=== PATIENT | female | born 1940 | race Caucasian/White ===

== ENCOUNTER 2016-10-26 09:24 | Inpatient (IN) | payer MEDICARE, BC ==
--- NOTE | ~2016-10-26 | CT71 ---
[facility] A Service of [facility] RADIOLOGY TEXT RESULTS PATIENT: ELVIN ORO LOCATION: [facility] : 40 UNIT #: [id number] AGE: [address]: Irma Loya MD SEX: F ORDER DR: [id number] [facility] [address] [facility]. [place], [place] [address] [id number] E MR#: [id number] Acc #: [id number] NAME: ELVIN ORO : 1940 SEX: F STUDY DATE/TIME: 10/26/2016 11:28 UNIT: [facility] ROOM: STUDY DESCRIPTION: CT Head Wo Contrast Attending Physician: Reba Sanders M.D. Ordering Physician: Reba Sanders M.D. Primary Care Physician: Soco Barker M.D. MEDICAL IMAGING REPORT This report is preliminary unless electronic signature is present EXAM CT head without contrast dated 10/26/2016. COMPARISON CT head without contrast dated 07/26/2012. HISTORY Patient fell this a.m. Dizziness for [address] of the head was obtained without contrast in the axial plane as per the protocol. This CT exam was performed with one or more of the following radiation dose reduction techniques: automatic exposure control, adjustment of mA and/or kV according to patient size, and iterative reconstruction. FINDINGS Ventricular size and configuration are normal. There is no evidence of acute infarct or hemorrhage. There are no extraaxial fluid collections. No mass lesion or mass effect is seen. There are no skull fractures. S-shaped nasal septal deviation is seen with mild nodular mucosal thickening in the posterior right ethmoid sinus. Larger right jose bullosa is seen. IMPRESSION Normal noncontrast head CT. Dictated by... Osiel Goins M.D. [facility] RADIOLOGY TEXT RESULTS PATIENT: ELVIN ORO LOCATION: [facility] 470- : 40 UNIT #: [id number] AGE: [address]: Irma Loya MD SEX: F ORDER DR: THIS IS AN ELECTRONICALLY VERIFIED REPORT Osiel Goins M.D. at 10/27/2016 2:14 PM CPR/tmw TD: 10/26/2016 13:29 JOB #: [id number] MEDICAL IMAGING REPORT Page 1 of 1 COPY
--- NOTE | ~2016-10-26 | CO ---
Unit #: [id number] #: [id number] Patient: ELVIN ORO [id number] [address] [address] [id number] I MR#: [id number] NAME: ELVIN ORO ROOM: 470 Age: 76 Sex: F Admission Date: 10/27/2016 : 1940 Attending Physician: Irma Loya M.D. Primary Care Physician: Soco Barker M.D. Consultation Date: 10/28/2016 CONSULTATION REPORT REASON FOR CONSULTATION Dysphagia to solids. HISTORY OF PRESENT ILLNESS Ms. Oro is a 76-year-old white female. She is quite frail. She presents with 4-5 week history of dysphagia to solids and history of intermittent bolus meat impaction. In fact, she had similar history a few years ago and had a history of dilation. In fact, she was admitted after having a fall at home. PAST MEDICAL HISTORY 1. History of osteoporosis. 2. Gastroesophageal reflux disease. 3. Hyperlipidemia. 4. Esophageal stricture, status post dilatation. 5. History of compression fractures. PAST SURGICAL HISTORY 1. Left knee surgery. 2. Esophageal dilation. SOCIAL HISTORY The patient lives with a friend. No smoking. Does not drink alcohol. Walks with minimal assistance. FAMILY HISTORY Significant for diabetes. No family history of colon, pancreatic cancer or varices. ALLERGIES No known drug allergies. HOME MEDICATIONS 1. Antireflux medication. 2. Anticholesterol medication. REVIEW OF SYSTEMS Detailed review of organ systems does not reveal any recent weight loss. No history of fever, chills or rigors, headache, seizures, chest pain or syncope. No history of cough, expectoration, hemoptysis. No history of dysuria, hematuria or pyuria. No history of focal seizures or extremity weakness. PHYSICAL EXAMINATION Unit #: [id number] #: [id number] Patient: ELVIN ORO GENERAL: She is alert and oriented and appears comfortable. Frail and thin. VITALS: Temperature 97.2, pulse 78 per minute, blood pressure 152/87. She weighs 154 pounds, close to her baseline weight. HEENT: No pallor, icterus, lymphadenopathy or peripheral edema. LUNGS: Normal breath sounds with good air entry. HEART: Normal heart sounds. No murmurs to auscultation. ABDOMEN: Soft and nontender. Liver and spleen are not palpable. Bowel sounds normal. DIAGNOSTIC STUDIES LABORATORY: Normal CBC, INR and chemistry. ASSESSMENT 1. Patient most likely has esophageal stricture that could be benign stricture or malignant stricture. The patient will have an upper endoscopy and possible dilation. This can be scheduled for tomorrow. 2. History of recent fall at home. 3. History of gastroesophageal reflux disease and hyperlipidemia. Thank you for the chance to see this pleasant patient. Dictated by... Jessica Cole TD: 10/30/2016 11:41 JOB #: [id number] CC: Jessica Koch M.D. Traci M. Edwards, M.D. CONSULTATION REPORT Page 1 of 1 X Andrew Causey MD X CONSULTATION REPORT
--- NOTE | ~2016-10-26 | CO ---
Unit #: [id number] #: [id number] Patient: ELVIN ORO [id number] [address] [place], [place] [address] [id number] I MR#: [id number] NAME: ELVIN ORO ROOM: [facility] Age: 76 Sex: F Admission Date: 10/26/2016 : 1940 Attending Physician: Irma Loya M.D. Primary Care Physician: Soco Barker M.D. Requesting Physician: Sarita Stephen M.D. Consultation Date: 10/27/2016 CONSULTATION REPORT ADMITTING PHYSICIAN Dr. Stephen. CONSULTING PHYSICIAN Dr. Terence Glynn/Dr. Joseph. REASON FOR ADMISSION Status post fall with left knee pain. HISTORY OF PRESENT ILLNESS The patient is a very pleasant, 76-year-old female who we were asked to see in consultation by Dr. Stephen for left knee pain and swelling. The patient reports she was in her usual state of health on Thursday morning until she got up, standing at the stove and her cat was behind her and she fell backwards. The patient caught herself on both hands. The patient reports she hit her left knee. The patient reports since she hit this knee, she has developed pain in her left knee. It is not localized. The patient admits she has a large effusion. The patient reports her pain is a 10 on a scale of 1 to 10. Her pain is definitely worse with ambulation. The patient denies any numbness, tingling, fever or chills. The patient arrived at the emergency department at [facility] for further evaluation and treatment. PAST MEDICAL HISTORY 1. Hospitalization March 07-2013, for a patella fracture. The patient underwent an ORIF with tension band wiring. 2. GERD. 3. Hyperlipidemia. 4. Esophageal stricture status post dilation. 5. Osteoporosis with history of compression fractures. PAST SURGICAL HISTORY 1. Esophageal dilation. 2. ORIF of left patella. SOCIAL HISTORY The patient lives with a friend. She does not use tobacco or alcohol. FAMILY HISTORY Notable mother dying of brain aneurysm. His dad at age 83. He had a pacemaker and was also a diabetic. ALLERGIES No known drug allergies. Unit #: [id number] #: [id number] Patient: ELVIN ORO HOME MEDICATIONS 1. Cholesterol medication. 2. Reflux medication. Medications will need to be verified. REVIEW OF SYSTEMS CONSTITUTIONAL: The patient denies any weight gain, weight loss. EYES: The patient denies double vision, blurred vision. LUNGS: The patient denies any shortness of air or chronic cough. CARDIOVASCULAR: The patient denies chest pain, irregular heartbeat. ABDOMEN: The patient denies any nausea, vomiting. MUSCULOSKELETAL: The patient admits to severe pain in her left knee. NEUROLOGIC: The patient is denying numbness or tingling. SKIN: The patient denied any rash or lesions. Twelve complete systems in total reviewed and negative other than above. PHYSICAL EXAMINATION GENERAL APPEARANCE: She is well developed, well nourished in no acute distress. She is alert and oriented x3. VITAL SIGNS: Temperature 98.2. Blood pressure 129/64. Heart rate 79 and regular. Respirations 16. HEENT: Normocephalic, atraumatic. PERRLA. Extraocular movements intact. Conjunctivae clear. NECK: Supple. No thyromegaly. LUNGS: Clear to auscultation. No accessory muscle use. Equal expansion bilaterally. CARDIOVASCULAR: S1, S2. ABDOMEN: Soft, nontender, nondistended. Positive bowel sounds. MUSCULOSKELTAL: Gait not appreciated. EXTREMITIES: Examination of the patient's left knee revealed she did have tenderness to palpation (1) left knee. She had a large effusion. She had decreased range of motion of her left knee. There were no other masses appreciated. Her mediolateral ligaments were stable without subluxation or laxity. Her quad tendon strength 4/5. No clubbing, cyanosis or edema other than noted above. SKIN: No rash or lesions other than noted above. NEUROLOGIC: The patient was able to move all four extremities but admittedly her left knee she did have some difficulties. DIAGNOSTIC STUDIES LABORATORY: Sodium 137, potassium 3.7, chloride 104, CO2 24, BUN 8, creatinine 0.7, glucose 107. WBC 7.8, hemoglobin 14.1. ASSESSMENT 1. Status post fall with left knee pain. 2. Intractable pain of her chest and left knee. CT of the chest is currently pending. 3. Reflux disease. 4. Hyperlipidemia. 5. Esophageal stricture. 6. History of compression fractures. PLAN I plan on aspirating and injecting the patient's left knee with cortisone after the aspiration. I did explain the risks and expected outcomes of Unit #: [id number] #: [id number] Patient: ELVIN ORO this type of procedure. The patient completely understands and wishes to proceed. I will go ahead and order the supplies and come back a little later and take care of this procedure. Dictated by... Wilder Sierra P.A.-C- for Terence Glynn M.D. HERMINIO/russ TD: 10/27/2016 09:02 JOB #: [id number] CONSULTATION REPORT Page 1 of 1 X X CONSULTATION REPORT
--- NOTE | ~2016-10-26 | CT57 ---
[facility] A Service of [facility] & [facility] RADIOLOGY TEXT RESULTS PATIENT: ELVIN ORO LOCATION: [place] [id number] : 40 UNIT #: [id number] AGE: [address]: Irma Loya MD SEX: F ORDER DR: [id number] [facility] [address] [facility] [place], [place] [address] [id number] E MR#: [id number] Acc #: [id number] NAME: ELVIN ORO : 1940 SEX: F STUDY DATE/TIME: 10/26/2016 11:31 UNIT: [facility] ROOM: STUDY DESCRIPTION: CT Chest Wo Cont Attending Physician: Reba Sanders M.D. Ordering Physician: Reba Sanders M.D. Primary Care Physician: Soco Barker M.D. MEDICAL IMAGING REPORT This report is preliminary unless electronic signature is present EXAM CT of the chest, without contrast media. HISTORY Fell this morning; pain across chest. TECHNIQUE Transaxial imaging of the chest was performed without contrast media. This CT exam was performed with one or more of the following radiation dose reduction techniques: automatic exposure control, adjustment of mA and/or kV according to patient size, and iterative reconstruction. COMPARISON The study is directly compared to a prior CT of the chest of 12/16/2014. FINDINGS Scans through the lungs show advanced emphysematous lung disease. There are areas of linear fibrosis in both bases with bronchiectasis. No acute-appearing infiltrates are identified. There is no pleural fluid identified. Scans through the mediastinum show atherosclerotic disease in the aorta and in the coronary arteries. There is no evidence of pleural or pericardial fluid. Scans through the upper abdomen are unremarkable. No rib fractures are identified. Parasagittal reconstructions do show compression fractures of T5, T7, and T8. Prior CT of 2014 did show compression fracture of T8 and minimal fracture of T5. There is at least 70% to 80% loss of vertebral height at T5 and T7 and at least 60% to 70% loss at T8. CONCLUSION 1. Advanced emphysematous and interstitial lung disease. 2. Linear areas of atelectasis in the bases with evidence of STS. [facility] A Service of [facility] & [facility] RADIOLOGY TEXT RESULTS PATIENT: ELVIN ORO LOCATION: [facility] 470-01 : 40 UNIT #: [id number] AGE: [address]: Irma Loya MD SEX: F ORDER DR: bronchiectasis. 3. Atherosclerotic disease in the aorta and in the coronary arteries. 4. Multiple thoracic compression fractures at T5, T7, and T8. These have all progressed or appeared since the study of November 2014. Dictated by... Ian Romero M.D. THIS IS AN ELECTRONICALLY VERIFIED REPORT Ian Romero M.D. at 10/27/2016 5:02 PM Felecia TD: 10/26/2016 13:20 JOB #: [id number] MEDICAL IMAGING REPORT Page 1 of 1 COPY
--- NOTE | ~2016-10-26 | CR239 ---
[facility] A Service of [facility] RADIOLOGY TEXT RESULTS PATIENT: ELVIN ORO LOCATION: [place] [address] : 40 UNIT #: [id number] AGE: [address]: Irma Loya MD SEX: F ORDER DR: [id number] [facility] [address] [facility]. [place], [place] [address] [id number] E MR#: [id number] Acc #: [id number] NAME: ELVIN ORO : 1940 SEX: F STUDY DATE/TIME: 10/26/2016 9:27 UNIT: [facility] ROOM: STUDY DESCRIPTION: CR Sternum Min 2 Views Attending Physician: Reba Sanders M.D. Ordering Physician: Reba Sanders M.D. Primary Care Physician: Soco Barker M.D. MEDICAL IMAGING REPORT This report is preliminary unless electronic signature is present EXAM Sternal series dated 10/26/2016. COMPARISON Single view chest dated 10/26/2016. HISTORY Patient fell today with sternal pain. FINDINGS 3 images of 2 views have been attempted. The lateral sternal view is adequate but the oblique images of the chest demonstrate the sternum is limited in visualization of the sternum. Based on the lateral view, no obvious acute displaced sternal fracture could be discerned. Costochondral calcifications are noted at the level of multiple ribs. There is diffuse bony osteopenia. Dictated by... Osiel Goins M.D. THIS IS AN ELECTRONICALLY VERIFIED REPORT Osiel Goins M.D. at 10/27/2016 2:04 PM CPR/tmw TD: 10/26/2016 10:04 JOB #: [id number] MEDICAL IMAGING REPORT Page 1 of 1 COPY
--- NOTE | ~2016-10-26 | OR ---
Unit #: [id number] #: [id number] Patient: ELVIN ORO [id number] [address] [place], [place] [address] [id number] I MR#: [id number] NAME: ELVIN ORO ROOM: [facility] Date of Procedure: 10/29/2016 Admission Date: 10/27/2016 Surgeon: Andrew Causey M.D. : 1940 Attending Physician: Irma Loya M.D. Primary Care Physician: Soco Barker M.D. OPERATIVE REPORT PRIMARY CARE PHYSICIAN Soco Barker M.D. PREOPERATIVE DIAGNOSIS Dysphagia. PROCEDURES PERFORMED Upper gastrointestinal endoscopy and biopsy as well as upper gastrointestinal endoscopy and a dilation. POSTOPERATIVE DIAGNOSES 1. The patient had distal esophageal tight stricture. The stricture was tight enough that it was difficult to pass the shaft of the scope. It was dilated with the shaft of the scope, which is about 10 mm followed by TTS balloon 12 to 15 mm up to 14 mm. 2. The patient had multiple hyperplastic gastric polyps throughout the gastric mucosa in the fundus and proximal body. 3. Mild prepyloric antral gastritis primarily in the form of diffuse erythema and erythematous streaks. A biopsy was obtained from the antrum for CLOtest. 4. Rest of the examination was normal up to third part of duodenum. RECOMMENDATIONS The patient can be started on diet as tolerated. Pantoprazole 40 mg p.o. daily. She can be discharged home from GI standpoint. She is to come back for a repeat EGD and dilation on 01/02/2017 at 8:00 a.m. n.p.o. after midnight. SEDATION USED MAC. DESCRIPTION OF PROCEDURE Following detailed explanation of potential risks and complications of an upper endoscopy, namely perforation, bleeding, and complication related to sedation, the patient was brought to GI lab and laid in the left lateral decubitus position. Lubricated tip of the Olympus video upper endoscope was passed through the bite block into the proximal esophagus under direct vision. The entire esophageal mucosa was examined. The patient was noted to have distal esophageal benign stricture at about 37 cm from the incisors. This was difficult to enter with the shaft of the scope. It was gently nudged past the stricture by breaking the part of the stricture and the scope was then advanced into the gastric cavity. A small hiatus Unit #: [id number] #: [id number] Patient: ELVIN ORO hernia was noted. Mucosa of the fundus, body, and antrum was examined. The patient was noted to have multiple polyps throughout the fundus of the stomach indicating diffuse hyperplastic polyps in the stomach. In addition, there was antral gastritis in the form of erythema and erythematous streaks in the antrum. Pylorus was intubated with visualization of the normal duodenal bulb and second and third part of the duodenum. Upon withdrawal and retroflexion, incisura, cardia, and greater curve was examined and biopsy was obtained from the antrum for CLOtest. The scope was then withdrawn in the distal esophagus. A 12 to 15 mm TTS balloon was passed through the accessory channel of the scope and step-up dilation of distal esophageal stricture was done up to 14 mm. Minimal bleeding was noted. It was washed with water and hemostasis was achieved. The scope was then withdrawn all the way up to pharynx. No additional findings were noted. The patient tolerated the procedure without any postprocedure complications. Dictated by... Jessica Cole/madhuri TD: 10/29/2016 23:25 JOB #: [id number] OPERATIVE REPORT Page 1 of 1 X Andrew Causey MD X PROCEDURE OPERATIVE NOTE
--- NOTE | ~2016-10-26 | EKG ---
PATIENT: ELVIN ORO UNIT #: [id number] Ventricular Rate: 75 BPM Atrial Rate: 75 BPM P-R Interval: 146 ms QRS Duration: 88 ms Q-T Interval: 384 ms QTC Calculation(Bezet): 428 ms P [place]: 50 degrees Calculated R [place]: -46 degrees Calculated T [place]: 39 degrees Diagnosis Line: Normal sinus rhythm Diagnosis Line: Left anterior fascicular block Diagnosis Line: Voltage criteria for left ventricular hypertrophy Diagnosis Line: Abnormal ECG Diagnosis Line: When compared with ECG of 16-DEC-2014 07:15, Diagnosis Line: No significant change was found Diagnosis Line: Confirmed by CE QUAN MD ([id number]) on 10/26/2016 Diagnosis Line: 4:48:21 PM INTERPRETING MD: AVELINA KUNZ
--- NOTE | ~2016-10-26 | HP ---
Unit #: [id number] #: [id number] Patient: ELVIN ORO [id number] [facility] [address] [facility]. [place], [place] [address] [id number] MR#: [id number] NAME: ELVIN ORO ROOM: Age: 76 Sex: F Admission Date: 10/26/2016 : 1940 Attending Physician: Reba Sanders M.D. Primary Care Physician: Soco Barker M.D. HISTORY AND PHYSICAL CHIEF COMPLAINT Fall. HISTORY OF PRESENT ILLNESS The patient is a 76-year-old female with past medical history of GERD, hyperlipidemia, esophageal stricture, osteoporosis, who presented to the emergency department for evaluation of the above. The patient states that she was in her usual state of health until the morning of admission when she fell. She states that she was standing at the stove and her cat was behind her and somehow got between her legs. She fell backward. She states that she caught herself with both hands. She hit her left knee. She denies hitting her head. No loss of consciousness. She states that she felt a pop in her anterior chest with immediate onset of pain in the chest and left knee. Upon arrival in the emergency department multiple imaging studies were done and showed no acute abnormality. She is being admitted to [facility] for evaluation and further treatment. PAST MEDICAL HISTORY 1. Admission to [facility] March 07 through 2013 for patellar fracture. She underwent ORIF with tension band wire during that admission. 2. GERD. 3. Hyperlipidemia. 4. Esophageal stricture, status post dilation. 5. Osteoporosis with history of compression fractures. PAST SURGICAL HISTORY 1. Esophageal dilation. 2. Left knee surgery. SOCIAL HISTORY The patient lives with a friend. There is no tobacco or alcohol use. She typically walks without assistance. FAMILY HISTORY Family history is notable for her mother dying of a brain aneurysm. her dad at the age of 83. He had a pacemaker and also had diabetes. ALLERGIES No known allergies. Unit #: [id number] #: [id number] Patient: ELVIN ORO HOME MEDICATIONS Home medications include cholesterol medication, acid reflux medication. Home medications will need to be reviewed and verified. REVIEW OF SYSTEMS A complete review of systems is negative except as indicated in the HPI. DIAGNOSTIC STUDIES IMAGING: Sternum x-ray shows no obvious acute displaced sternal fracture. Left knee x-ray shows no superimposed acute displaced new fracture. There is a bony fragment on the medial and lateral aspect of the patella, likely related to older injury. There is also ytff-av-qeywwrsd joint effusion. Chest x-ray shows no acute displaced rib or sternal fracture. CT of the chest is pending. PHYSICAL EXAMINATION VITAL SIGNS: Temperature is 97.4. Pulse 73. Respirations 19. Blood pressure 143/101. Oxygen saturation 95% on room air. GENERAL: The patient is a female who is awake and alert, in no acute distress. HEENT: The head is atraumatic. Mucous membranes are moist. NECK: Neck is supple. Trachea is midline. CARDIOVASCULAR: Regular rate and rhythm. LUNGS: Lungs are clear to auscultation bilaterally with no increased work of breathing. ABDOMEN: Abdomen is soft, nontender, with bowel sounds present in all four quadrants. EXTREMITIES: The left knee is tender to palpation with decreased range of motion secondary to pain. NEUROLOGIC: The patient is awake and alert. She follows commands. PSYCHIATRIC: Mood and affect are normal. The patient is cooperative. SKIN: Skin of examined areas is warm and dry. MUSCULOSKELETAL: The patient is tender to palpation in the upper chest including the sternum as well as the anterior chest wall. ASSESSMENT The patient is a 76 -year-old female with: 1. Status post fall. 2. Intractable pain of the chest and left knee. Left knee x-ray shows bony fragment on the medial and lateral aspect of the patella, likely related to older injury. There is wjya-fo-yfyugmmv joint effusion. A CT of the chest is currently pending. 3. Gastroesophageal reflux disease. 4. Hyperlipidemia. 5. History of esophageal stricture status post dilation osteoporosis with a history of compression fractures. PLAN 1. Admit to intermediate level for observation. 2. Healthy-heart diet. 3. Fall precautions 4. PT, OT to evaluate and treat. 5. Follow up results of CT chest. 6. Incentive spirometry. Unit #: [id number] #: [id number] Patient: ELVIN ORO 7. Supplemental oxygen. 8. P.r.n. [place]. 9. P.r.n. Zofran. 10. Check EKG and cardiac enzymes. 11. Consult Dr. Joseph regarding left knee pain and joint effusion. 12. Check labs. 13. SCDs for DVT prophylaxis. 14. Additional workup and consultants based on above. Dictated by Sarita Stephen M.D. TEMO/earlene TD: 10/26/2016 13:05 JOB #: [id number] HISTORY AND PHYSICAL Page 1 of 1 X Sarita Stephen MD X HISTORY AND PHYSICAL
--- NOTE | ~2016-10-26 | CR72 ---
[facility]. [facility] A Service of [facility] & [facility] RADIOLOGY TEXT RESULTS PATIENT: ELVIN ORO LOCATION: [place] [address] : 40 UNIT #: [id number] AGE: [address]: Irma Loya MD SEX: F ORDER DR: [id number] [facility] [address] [place], [place] [address] [id number] E MR#: [id number] Acc #: [id number] NAME: ELVIN ORO : 1940 SEX: F STUDY DATE/TIME: 10/26/2016 9:25 UNIT: [facility] ROOM: STUDY DESCRIPTION: CR Chest Single View Portable Attending Physician: Reba Sanders M.D. Ordering Physician: Reba Sanders M.D. Primary Care Physician: Soco Barker M.D. MEDICAL IMAGING REPORT This report is preliminary unless electronic signature is present EXAM Single view of the chest, 10/26/2016. COMPARISON Single view chest, 12/16/2014. HISTORY Patient fell today with chest pain, sternal pain, shortness of air. FINDINGS Single view of the chest was obtained. There is diffuse, stable, mild prominence of the interstitial markings, which could be related to chronic interstitial lung disease. Superimposed mild acute interstitial disease cannot be excluded. Bibasilar atelectatic lung changes are noted, particularly in the retrocardiac left lower lobe. No pleural effusion or pneumothorax. No obvious acute displaced rib or sternal fractures are seen in this single view, but if there is concern, dedicated views are suggested. Dictated by... Osiel Goins M.D. THIS IS AN ELECTRONICALLY VERIFIED REPORT Osiel Goins M.D. at 10/27/2016 2:04 PM CPR/miri TD: 10/26/2016 10:06 JOB #: [id number] MEDICAL IMAGING REPORT Page 1 of 1 COPY
--- NOTE | ~2016-10-26 | DS ---
Unit #: [id number] #: [id number] Patient: ELVIN ORO [id number] [address] [address] [id number] I MR#: [id number] NAME: ELVIN ORO ROOM: [facility] Age: 76 Sex: F Admission Date: 10/27/2016 : 1940 Discharge Date: 10/30/2016 Attending Physician: Irma Loya M.D. Primary Care Physician: Soco Barker M.D. DISCHARGE SUMMARY ADMISSION DIAGNOSES 1. Status post fall. 2. Intractable pain of the chest and left knee. 3. Gastroesophageal reflux disease. 4. Hyperlipidemia. 5. History of esophageal stricture status post dilatation. 6. Osteoporosis with history of multiple thoracic compression fractures. 7. Debility status post fall. DISCHARGE DIAGNOSES 1. Status post fall. 2. Musculoskeletal tenderness and pain anterior upper thorax and posterior cervical spine paraspinous muscles. 3. Left knee pain status post aspiration. 4. Gastroesophageal reflux disease. 5. Dysphagia. 6. Esophageal stricture status post esophagogastroduodenoscopy with dilatation. 7. Multiple gastric polyps and mild antral gastritis status post esophagogastroduodenoscopy. 8. History of multiple thoracic compression fractures. 9. Debility status post fall. PROCEDURES 1. 10/27/16, left knee effusion aspiration with cortisone injection for history of known osteoarthritis. 2. 10/29/16, upper GI endoscopy and biopsy as well as upper GI endoscopy and dilatation. Patient to follow up with Dr. Causey per his recommendations for result of biopsies and JOHNATHON test result. CONDITION Stable. [facility] and has a bed available for transfer today. DISCHARGE MEDICATIONS 1. Tylenol 650 mg p.o. q.4 hours p.r.n. A maximum of 3 g per 24 hours from all doses. 2. Bisacodyl 10 mg p.r. daily p.r.n. constipation. 3. Senokot two tabs p.o. daily. 4. Protonix 40 mg p.o. every morning. 5. TUMS 500 mg p.o. daily p.r.n. acid reflux. Unit #: [id number] #: [id number] Patient: ELVIN ORO. The patient currently has an order for hydrocodone/APAP 5/325 mg tab one to tabs p.o. q.4 hours as needed for severe pain. Any order for this medication will be given by Dr. Loya prior to discharge. DIET As tolerated. DISCHARGE INSTRUCTIONS 1. The patient is to call and schedule a followup appointment with her primary care physician in five to seven days after discharge from rehab. 2. Per order of Dr. Andrew Causey, the patient is to come back for repeat EGD and dilatation on 01/02/17 at 8 a.m. He has written that the patient is to be n.p.o. after midnight prior to this procedure. 3. The patient is to follow up with Dr. Causey per his recommendations for results of JOHNATHON test and biopsies. DIAGNOSTIC STUDIES LABORATORY: WBC 6.3, hemoglobin 14.3, hematocrit 42.6, platelets 241,000. Sodium 140, potassium 3.8, chloride 107, CO2 27, glucose 95, BUN 15, creatinine 0.7, calcium 8.4, magnesium 2.1. Troponin I less than 0.03, less than 0.03, less than 0.03. CK total 19. CK MB 21. IMAGING 1. CT of the head without contrast. Impression: Normal noncontrast head CT. 2. CT of the chest without contrast. Conclusion: Advanced emphysematous and interstitial lung disease. Linear atelectasis in bases with evidence of bronchiectasis. Atherosclerotic disease in the aorta and coronary arteries. Multiple thoracic compression fractures at T5, 7 and 8. These have all progressed or appeared since the study of November 2014. 3. Left knee series. Impression: Previously noted patellar fracture in 2013 has been internally fixed with nails and metallic sutures. It demonstrates normal alignment and healing. No superimposed, acute, displaced knee fracture discerned. Bony fragment noted on medial and lateral aspect of patella, particularly on the sunrise view. These are likely related to an older injury. Mild to moderate joint effusion seen. 4. Sternal series. Impression: Lateral view is adequate but oblique images of chest demonstrate sternum is limited in visualization. Based on lateral view, no obvious acute displaced sternal fracture discerned. Costochondral calcifications noted at the level of multiple ribs. There is diffuse bony osteopenia. 5. Single view of the chest. Findings: Changes which could be related to chronic interstitial lung disease. Superimposed mild acute interstitial disease cannot be excluded. Bibasilar atelectatic lung changes noted particularly in retrograde cardiac left lobe. No pleural effusion or pneumothorax. No obvious acute displaced rib or sternal fracture seen on this single view. HOSPITAL COURSE The patient is a 76-year-old female who presented to [facility] on the date of admission status post fall with complaint of feeling a pop in her anterior chest with immediate onset of pain in her chest and left knee. The patient states that she was standing at the stove and her cat was behind her and got between her legs which resulted in her falling backwards and an attempt to catch herself with Unit #: [id number] #: [id number] Patient: ELVIN ORO R both hands which caused pressure on her anterior chest muscles and posterior neck muscles. She did not hit her head. She had no loss of consciousness. She was evaluated with diagnostic imaging studies as dictated above none of which showed an acute abnormality other than left knee effusion. The patient was admitted to the hospital for further evaluation and management of her condition. Please refer to history and physical report for complete details. Left knee pain status post aspiration: Dr. Joseph was consulted for further evaluation and management of left knee pain and left knee effusion. The patient underwent left knee aspiration and cortisone injection to the left knee which she tolerated well. She has been participating in physical therapy and walking with assistance and with a walker throughout the hospital course and has a tolerated it well. History of esophageal stricture, acute dysphagia status post EGD with dilatation: The patient complained of feeling like she was having difficulty swallowing which had been an issue for her for the past three weeks. She reported feeling like rice krispies were stuck in her throat after breakfast on 10/28/16. The patient was made n.p.o. until a swallow evaluation could be performed. Swallow evaluation by the speech therapist revealed signs of esophageal issues. The patient was placed on a slick diet and thin liquids of six small [address] Causey was consulted for further GI evaluation and management. The patient underwent EGD with dilatation of esophageal stricture yesterday. She is to follow up with Dr. Causey for a repeat dilatation as dictated above. The patient is tolerating food and fluids well at this time. Incidental findings during the EGD included multiple gastric polyps as well as mild antral gastritis. Dr. Causey has recommended continuation of proton pump inhibitor as dictated under discharge medications above. Musculoskeletal tenderness over anterior pectoral muscles and posterior C-spine paraspinous muscle tenderness: The patient has no complaints unless she moves in bed or flexes or extends her head. She has full range of motion of her C-spine. She has full range of motion with both shoulders. Head movement reproduces the anterior chest musculoskeletal tenderness. The patient is breathing well. Oxygen saturations have been stable. She has a history of thoracic compression fractures which was confirmed through diagnostic imaging at this time. None of the fractures appear to be acute in nature. She has no complaints of thoracic pain. The patient was cleared for discharge home by Dr. Causey yesterday afternoon post EGD pending tolerance of diet. The patient will be evaluated by Dr. Loya today and discharged with transfer to [facility] where she has been accepted and has a bed available today. Dictated by... Kimberly Tovar A.P.R.N. for Jessica Hammer/russ TD: 10/30/2016 13:19 JOB #: [id number] Unit #: [id number] #: [id number] Patient: ELVIN ORO DISCHARGE SUMMARY Page 1 of 1 X Kimberly Tovar APRN DISCHARGE SUMMARY
--- NOTE | ~2016-10-26 | CO ---
Unit #: [id number] #: [id number] Patient: ELVIN ORO [id number] [place] [address] [facility]. [place], [place] [address] [id number] I MR#: [id number] NAME: ELVIN ORO ROOM: [facility] Age: 76 Sex: F Admission Date: 10/27/2016 : 1940 Attending Physician: Irma Loya M.D. Primary Care Physician: Soco Barker M.D. Requesting Physician: Sarita Stephen M.D. Consultation Date: 10/28/2016 CONSULTATION REPORT REASON FOR CONSULTATION Dysphagia. HISTORY OF PRESENT ILLNESS Ms. Oro is a very pleasant, but frail, 76-year-old white female who has been admitted with history of fall. The patient apparently was trying to stay away from her cat and ended up hitting her left knee during the fall. There was no loss of consciousness. The patient does mention history of intermittent dysphagia with solids, which is getting worse lately. She does have a history of esophageal stricture status post dilation, as well as a history of GERD. PAST MEDICAL HISTORY Her past medical history is significant for history of GERD, hyperlipidemia, esophageal stricture status post dilation, osteoporosis with compression fractures. PAST SURGICAL HISTORY Previous surgeries include a left knee surgery and esophageal dilation. SOCIAL HISTORY She lives with a friend. Does not smoke, drink alcohol. Generally walks around without much help. FAMILY HISTORY Significant for brain aneurysm and diabetes. MEDICATIONS Her medications include medications for acid reflux and hyperlipidemia. ALLERGIES She has no known drug allergies. REVIEW OF SYSTEMS A detailed review of organ systems does not reveal any recent weight loss. No history of fevers, chills or rigors. No history of headache or seizures or syncope. No history of cough, expectoration or hemoptysis. No history of dysuria, hematuria or polyuria. No history of focal seizures or extremity weakness. The rest of the review of organ systems is unremarkable. PHYSICAL EXAMINATION GENERAL: On examination, she is alert and oriented, comfortable, sitting up in bed, frail. She appears quite thin. She has no pallor, icterus, Unit #: [id number] #: [id number] Patient: ELVIN ORO lymphadenopathy or peripheral edema. VITAL SIGNS: Her vital signs are stable with a temperature of 97.4, pulse 73 per minute and regular, respiratory rate 19, blood pressure 151/70. She weighs 154 pounds, which is close to her baseline weight. CARDIOVASCULAR: Normal heart sounds. No murmurs on auscultation. RESPIRATORY: The lungs reveal normal breath sounds, good air entry. ABDOMEN: The abdomen is soft and nontender. The liver and spleen are not palpable. Bowel sounds are normal. DIAGNOSTIC STUDIES LABORATORY: Lab evaluation shows a normal CBC, INR and serum chemistry. CLINICAL IMPRESSION 1. Patient with intermittent dysphagia to solids, including pills. The most likely etiology seems to be esophageal stricture in view of the similar history in the past. An upper endoscopy and a dilation is warranted. This will be scheduled for tomorrow. 2. Recent history of fall. 3. Underlying hypertension, hyperlipidemia. Thank you very much for asking me to see this pleasant woman. I appreciate the consult. Dictated by... Jessica Cole/mali TD: 10/30/2016 08:42 JOB #: [id number] CONSULTATION REPORT Page 1 of 1 X Andrew Causey MD CONSULTATION REPORT
--- NOTE | ~2016-10-26 | OR ---
Unit #: [id number] #: [id number] Patient: ELVIN ORO [id number] [address] [place], [place] [address] [id number] I MR#: [id number] NAME: ELVIN ORO ROOM: [facility] Date of Procedure: 10/27/2016 Admission Date: 10/26/2016 Surgeon: Van Joseph M.D. : 1940 Attending Physician: Irma Loya M.D. Primary Care Physician: Soco Barker M.D. PROCEDURE OPERATIVE NOTE REASON FOR PROCEDURE Status post fall with left knee effusion. PROCEDURE The patient's left knee was anesthetized in the usual fashion with 3 mL of 1% Xylocaine utilizing a lateral approach. 18 gauze cannula was introduced laterally. 19 mL of bright red blood was aspirated. Cortisone was put in the patient's left knee because of known osteoarthritis. The patient tolerated the procedure well. There were no apparent complications. Sterile dressing was applied. We will see the patient in the office in a couple of weeks. Dictated by... Wilder Sierra P.A.-C- for Jessica Whitfield/christin TD: 10/27/2016 12:51 JOB #: [id number] PROCEDURE OPERATIVE NOTE Page 1 of 1 X X PROCEDURE OPERATIVE NOTE
--- NOTE | ~2016-10-26 | CR172 ---
[facility] A Service of [facility] RADIOLOGY TEXT RESULTS PATIENT: ELVIN ORO LOCATION: [place] [address]- : 40 UNIT #: [id number] AGE: [address]: Irma Loya MD SEX: F ORDER DR: [id number] [facility] [address] [place], [place] [address] [id number] E MR#: [id number] Acc #: [id number] NAME: ELVIN ORO : 1940 SEX: F STUDY DATE/TIME: 10/26/2016 9:35 UNIT: [facility] ROOM: STUDY DESCRIPTION: CR Knee 3 Views Lt Attending Physician: Reba Sanders M.D. Ordering Physician: Reba Sanders M.D. Primary Care Physician: Soco Barker M.D. MEDICAL IMAGING REPORT This report is preliminary unless electronic signature is present EXAM Left knee series dated 10/26/2016. COMPARISON Left knee series dated 03/07/2014. HISTORY Left knee pain post fall today. FINDINGS 2 views of the left knee were obtained. There is internal fixation of patella with nails and metallic sutures, internally fixing a significant fracture from 2 1/2 years ago. No obvious acute displaced superimposed fracture could be discerned. There is mild to moderate joint effusion. Visualized femur, tibia, and fibula are unremarkable. IMPRESSION 1. Previously noted patella fracture in 2013 has been internally fixed with nails and metallic sutures. It demonstrates normal alignment and healing. No superimposed acute displaced new fracture is discerned. There is bony fragment noted on medial and lateral aspect of the patella, particularly on the sunrise view. They are likely related to the older injury. 2. Rkfp-hh-elweyoki joint effusion is seen. Dictated by... Osiel Goins M.D. THIS IS AN ELECTRONICALLY VERIFIED REPORT Osiel Goins M.D. at 10/27/2016 2:04 PM CPR/tmw [facility] A Service of [facility] RADIOLOGY TEXT RESULTS PATIENT: ELVIN ORO LOCATION: [facility] [id number] : 40 UNIT #: [id number] AGE: [address]: Irma Loya MD SEX: F ORDER DR: TD: 10/26/2016 10:05 JOB #: [id number] MEDICAL IMAGING REPORT Page 1 of 1 COPY
[~2016-10-26 09:24] MED LIST: ACID REFLUX MED PO; ANUSOL HC; CALCIUM + D 6001 TA1 PO; CALTRATE PLUS T1 TAB PO; CHOLESTEROL MED PO; FISH OIL 1,0001 CAP PO; LIPITOR PO; LIPITOR40 MG PO; LOC PO; NEXIUM PO; PANTOPRAZOLE SO40 MG PO; PROTONIX PO; STOOL SOFTENER1 EAC1 PO; STOOL SOFTENER100 M1 PO; VOLTAREN50 MG PO
[2016-10-26 15:48] LABS: HEMATOCRIT 41.8 % (35.0-45.0); HEMOGLOBIN 14.1 gm/dL (12.0-16.0); MEAN CELL VOLUME 96.6 FL (83-96); MEAN CORPUSCULAR HEMOGLOBIN 32.5 PG (28-34); MEAN CORPUSCULAR HGB CONC 33.7 g/dL (30-36); MEAN PLATELET VOLUME 7.1 FL (6.5-11.5); RED BLOOD COUNT 4.33 X10e (3.90-5.30); RED CELL DISTRIBUTION WIDTH 12.6 % (11.0-15.5); WHITE BLOOD COUNT 7.8 X10e3 (4.0-10.5)
[2016-10-26 16:07] LABS: BUN/CREATININE RATIO 11.42; CALCIUM SERUM 8.7 mg/dL (8.4-10.2); CREATININE SERUM 0.7 mg/dL (0.6-1.4); GLOM FILT RATE Estimated 84.2 mL/min (>60); POTASSIUM 3.7 mmol/L (3.5-5.1)
[2016-10-26] MEDS ORDERED: TUMS DUAL ACTI1 EACH PO (17:40)
[2016-10-26] MEDS ORDERED: STOOL SOFTENER1 EAC4 PO (17:40)
[2016-10-26 20:01] LABS: CK TOTAL 21 IU/L (26-140)
[2016-10-27 03:00] LABS: CK TOTAL 19 IU/L (26-140)
[2016-10-28 03:04] LABS: BASOPHIL% 0.1 % (0-2.5); HEMATOCRIT 42.6 % (35.0-45.0); HEMOGLOBIN 14.3 gm/dL (12.0-16.0); LYMPHOCYTE# 0.9 X10e3 (1.0-3.5); LYMPHOCYTE% 13.5 % (17.0-45.0); MEAN CORPUSCULAR HEMOGLOBIN 32.8 PG (28-34); MEAN CORPUSCULAR HGB CONC 33.4 g/dL (30-36); MEAN PLATELET VOLUME 7.6 FL (6.5-11.5); MONOCYTE# 0.3 X10e3 (0-1.0); MONOCYTE% 4.9 % (3.0-12.0); NEUTROPHIL# 5.2 X10e3 (1.5-7.1); NEUTROPHIL% 81.5 % (40-75); PLATELET COUNT 241 X10e3 (140-420); RED BLOOD COUNT 4.35 X10e (3.90-5.30); RED CELL DISTRIBUTION WIDTH 12.6 % (11.0-15.5); WHITE BLOOD COUNT 6.3 X10e3 (4.0-10.5)
[2016-10-28 03:06] LABS: DIFF IND NO
[2016-10-28 03:26] LABS: BUN/CREATININE RATIO 23.33; CREATININE SERUM 0.6 mg/dL (0.6-1.4); GLOM FILT RATE Estimated 88.5 mL/min (>60); POTASSIUM 3.8 mmol/L (3.5-5.1)
[2016-10-29 04:14] LABS: BUN/CREATININE RATIO 24.28; CALCIUM SERUM 8.6 mg/dL (8.4-10.2); CREATININE SERUM 0.7 mg/dL (0.6-1.4); GLOM FILT RATE Estimated 84.2 mL/min (>60)
[2016-10-30 04:08] LABS: BUN/CREATININE RATIO 21.42; CALCIUM SERUM 8.4 mg/dL (8.4-10.2); CREATININE SERUM 0.7 mg/dL (0.6-1.4); GLOM FILT RATE Estimated 84.2 mL/min (>60); MAGNESIUM 2.1 mg/dL (1.6-3.0); POTASSIUM 3.8 mmol/L (3.5-5.1)
[2017-01-02] MEDS ORDERED: TUMS300 MG (09:29)
[2017-01-02] MEDS ORDERED: TYLENOL EXTRA500 M1 PO (09:29)
== END 2016-10-30 16:29 | DRG 556 ==
LOC: CED 09:24 → CEDOF 12:50 → C4C 10-27 15:11
PROVIDERS: Family Medicine; Internal Medicine; Internal Medicine Gastroenterology; Nurse Practitioner
PROC: 0S9D3ZZ Drainage of Left Knee Joint, Percutaneous Approach (ICD-10-PCS; principal; 2016-10-27)
PROC: 0D738ZZ Dilation of Lower Esophagus, Via Natural or Artificial Opening Endoscopic (ICD-10-PCS; 2016-10-29 17:56)
PROC: 0DB78ZX Excision of Stomach, Pylorus, Via Natural or Artificial Opening Endoscopic, Diagnostic (ICD-10-PCS; 2016-10-29 17:56)
DX: M25.562 Pain in left knee (principal); K22.2 Esophageal obstruction; I10 Essential (primary) hypertension; R07.89 Other chest pain; J43.9 Emphysema, unspecified; R26.2 Difficulty in walking, not elsewhere classified; W18.31XA Fall on same level due to stepping on an object, initial encounter; Y92.000 Kitchen of unspecified non-institutional (private) residence as the place of occurrence of the external cause; K21.9 Gastro-esophageal reflux disease without esophagitis; M81.0 Age-related osteoporosis without current pathological fracture; E78.5 Hyperlipidemia, unspecified; K31.7 Polyp of stomach and duodenum; K29.70 Gastritis, unspecified, without bleeding; R13.10 Dysphagia, unspecified; R73.9 Hyperglycemia, unspecified; Z82.49 Family history of ischemic heart disease and other diseases of the circulatory system; Z83.3 Family history of diabetes mellitus; M25.462 Effusion, left knee
CPT/HCPCS: 70450; 71010; 71120; 71250; 73562; 80048; 82550; 83735; 84484; 85025; 85027; 87077; 92610; 93005; 97110; 97116; 97163; 97167; 97530; 97535; 99285; G8978-GP; G8979-GP; G8987-GO; G8988-GO; G8996-GN; G8997-GN; G8998-GN; J1040; J2250; J2270; J2405

== ENCOUNTER 2016-11-30 11:27 | Emergency (ER) | payer MEDICARE, BC ==
--- NOTE | ~2016-11-30 | CT2 ---
[facility] A Service of [facility] RADIOLOGY TEXT RESULTS PATIENT: ELVIN ORO LOCATION: [facility] : 40 UNIT #: [id number] AGE: [address]: Hussain Fraire MD SEX: F ORDER DR: [id number] [facility] [address]. [place], [place] [address] [id number] E MR#: [id number] Acc #: [id number] NAME: ELVIN ORO : 1940 SEX: F STUDY DATE/TIME: 11/30/2016 13:44 UNIT: [facility] ROOM: STUDY DESCRIPTION: CT Abd and Pelv W Cont Attending Physician: Hussain Fraire M.D. Ordering Physician: Hussain Fraire M.D. Primary Care Physician: Soco Barker M.D. MEDICAL IMAGING REPORT This report is preliminary unless electronic signature is present EXAM CT abdomen and pelvis with IV contrast HISTORY Nausea and vomiting for 1 week. Diarrhea for [address] exam was performed with one or more of the following radiation dose reduction techniques: automatic exposure control, adjustment of mA and/or kV according to patient size, and iterative reconstruction. FINDINGS CT abdomen and pelvis was performed with oral and IV contrast. CT ABDOMEN: Incidental fatty infiltration of the liver. No hepatic mass or biliary dilatation. The gallbladder, spleen, pancreas, and adrenal glands are normal. Mild bilateral pyelocaliectasis. Mild ectasia of the infrarenal abdominal aorta measuring 2.6 cm. No ascites. No bowel dilatation. No adenopathy. Larw-vc-jabwbfsg diverticulosis in the descending colon. CT PELVIS: Moderately extensive sigmoid diverticulosis. No diverticulitis. Minimal free fluid in the pelvis is nonspecific. The uterus and adnexa are unremarkable. Urinary bladder is normal. Normal appendix. IMPRESSION 1. Mild bilateral pyelocaliectasis but no ureteral dilatation. This could be secondary to incidental low grade UPJ obstruction. No urinary calculi. 2. No bowel dilatation. 3. Normal appendix. 4. Diverticulosis in the descending and sigmoid colon but no [facility] Service of [facility] & [facility] RADIOLOGY TEXT RESULTS PATIENT: ELVIN ORO LOCATION: [facility] #: [id number] : [birth year] UNIT #: [id number] AGE: [address]: Hussain Fraire MD SEX: F ORDER DR: diverticulitis. Dictated by... Sha Huizar M.D. THIS IS AN ELECTRONICALLY VERIFIED REPORT Sha Huizar M.D. at 12/01/2016 12:49 PM BIRD/terry TD: 12/01/2016 04:02 JOB #: [id number] MEDICAL IMAGING REPORT Page 1 of 1 COPY
[~2016-11-30 11:27] MED LIST changes: +STOOL SOFTENER1 EAC4 PO; +TUMS DUAL ACTI1 EACH PO
[2016-11-30 12:35] LABS: URINE SOURCE CLEAN CATCH
[2016-11-30 12:40] LABS: BASOPHIL% 0.4 % (0-2.5); DIFF IND NO; EOSINOPHIL% 0.2 % (0.0-7.0); HEMATOCRIT 45.4 % (35.0-45.0); LYMPHOCYTE# 1.3 X10e3 (1.0-3.5); LYMPHOCYTE% 21.3 % (17.0-45.0); MEAN CELL VOLUME 96.7 FL (83-96); MEAN CORPUSCULAR HGB CONC 33.1 g/dL (30-36); MEAN PLATELET VOLUME 7.7 FL (6.5-11.5); MONOCYTE# 0.5 X10e3 (0-1.0); MONOCYTE% 7.4 % (3.0-12.0); NEUTROPHIL# 4.5 X10e3 (1.5-7.1); NEUTROPHIL% 70.7 % (40-75); PLATELET COUNT 263 X10e3 (140-420); RED CELL DISTRIBUTION WIDTH 12.5 % (11.0-15.5); WHITE BLOOD COUNT 6.3 X10e3 (4.0-10.5)
[2016-11-30 12:42] LABS: URINE APPEARANCE TURBID; URINE BILIRUBIN NEG (NEG); URINE BLOOD NEG (NEG); URINE COLOR YELLOW; URINE GLUCOSE NEG (NEG); URINE KETONE TRACE (NEG); URINE LEUKOCYTE ESTERASE NEG (NEG); URINE NITRATE NEG (NEG); URINE PH 8.5 (5-8); URINE PROTEIN NEG (NEG); URINE SPECIFIC GRAVITY 1.014 (1.003-1.035); URINE UROBILINOGEN 0.2 MG/DL (NEG)
[2016-11-30 12:56] LABS: CULTURE INDICATED? NO
[2016-11-30 13:06] LABS: ALBUMIN SERUM 3.8 g/dL (3.5-5.0); BILIRUBIN, DIRECT 0.2 mg/dL (0.0-0.2); BILIRUBIN,INDIRECT 0.7 mg/dL (0.0-0.9); BILIRUBIN,TOTAL 0.9 mg/dL (0.2-2.0); CALCIUM SERUM 9.6 mg/dL (8.4-10.2); CREATININE SERUM 0.5 mg/dL (0.6-1.4); POTASSIUM 3.8 mmol/L (3.5-5.1); PROTEIN TOTAL SERUM 6.7 g/dL (6.0-8.3)
[2017-01-02] MEDS ORDERED: TUMS300 MG (09:29)
[2017-01-02] MEDS ORDERED: TYLENOL EXTRA500 M1 PO (09:29)
== END 2016-11-30 14:35 | disposition home or self-care (01) ==
LOC: CED 11:27
PROVIDERS: Emergency Medicine
DX: K52.9 Noninfective gastroenteritis and colitis, unspecified (principal); E78.5 Hyperlipidemia, unspecified; K21.9 Gastro-esophageal reflux disease without esophagitis; M81.0 Age-related osteoporosis without current pathological fracture
CPT/HCPCS: 36415; 74177; 80048; 80076; 81003; 83690; 85025; 96361; 96374; 96375; 99284; C9113; J2270; J2405; Q9967

== ENCOUNTER → 2017-01-02 | Day surgery (SDC) | payer MEDICARE, BC ==
[~2017-01-02] MED LIST changes: +MOTION RELIEF25 MG PO; +TUMS300 MG; +TYLENOL EXTRA500 M1 PO
--- NOTE | ~2017-01-02 | OR ---
Unit #: [id number] #: [id number] Patient: ELVIN ORO [id number] [address] [address] [id number] MR#: [id number] NAME: ELVIN ORO ROOM: Date of Procedure: 01/02/2017 Admission Date: 01/02/2017 Surgeon: Andrew Causey M.D. : 1940 Attending Physician: Andrew Causey M.D. Primary Care Physician: Soco Barker M.D. OPERATIVE REPORT PREOPERATIVE DIAGNOSIS Dysphagia. PROCEDURES PERFORMED Upper gastrointestinal endoscopy and dilation. POSTOPERATIVE DIAGNOSES 1. The patient had a tight stricture in the distal esophagus. This was dilated using a 12 to 15 mm TTS balloon up to 15 mm. 2. The patient also had multiple gastric hyperplastic polyps, which had been addressed in the past examinations. 3. Prepyloric antral gastritis. 4. Rest of the examination up to third part of duodenum was normal. RECOMMENDATIONS The patient will be rescheduled for a repeat examination in the future based upon her response to dilation today. SEDATION USED MAC. DESCRIPTION OF PROCEDURE Following detailed explanation of the potential risks and complications of an upper endoscopy, namely perforation, bleeding, and complications related to sedation, the patient was brought to GI lab and laid in the left lateral decubitus position. Lubricated tip of the Olympus video upper endoscope was passed through the bite block into the proximal esophagus under direct vision. The entire esophageal mucosa was examined. The patient was noted to have a stricture in the distal esophagus, although, this was tight. It appeared lot better than first instance couple of months ago. The scope was then advanced into the gastric cavity and the latter was insufflated. Mucosa of the fundus, body, and antrum examined and changes of moderate prepyloric antral gastritis noted. Pylorus was intubated with visualization of normal duodenal bulb and second and third part of the duodenum. Upon withdrawal and retroflexion, incisura, cardia, and greater curve examined and no additional findings noted. The scope was then withdrawn in the distal esophagus. Using a 12 to 15 mm TTS balloon, the distal esophageal stricture was dilated up to 15 mm. Excellent dilation was achieved and photodocumentation was obtained. Minimal bleeding was noted from the area after dilation. It was thoroughly washed with water and good hemostasis was achieved. The scope was then withdrawn all the way up to pharynx. No additional findings Unit #: [id number] #: [id number] Patient: ELVIN ORO. The patient tolerated the procedure without any postprocedure complications. Dictated by... Jessica Cole TD: 01/07/2017 05:20 JOB #: [id number] OPERATIVE REPORT Page 1 of 1 X Andrew Causey MD X PROCEDURE OPERATIVE NOTE
== END | disposition home or self-care (01) ==
LOC: COPS 08:56
DX: K22.2 Esophageal obstruction (principal); K29.70 Gastritis, unspecified, without bleeding; K21.9 Gastro-esophageal reflux disease without esophagitis; Z87.19 Personal history of other diseases of the digestive system; Z79.899 Other long term (current) drug therapy; Z98.890 Other specified postprocedural states

== ENCOUNTER 2017-01-14 15:00 | Observation (INO) | payer MEDICARE, BC ==
--- NOTE | ~2017-01-14 | HP ---
Unit #: [id number] #: [id number] Patient: ELVIN ORO [id number] [address] [address] [id number] I MR#: [id number] NAME: ELVIN ORO ROOM: 341 Age: 76 Sex: F Admission Date: 01/14/2017 : 1940 Attending Physician: Yolanda Hankins M.D. Primary Care Physician: Soco Barker M.D. HISTORY AND PHYSICAL CHIEF COMPLAINT Vertigo. HISTORY OF PRESENT ILLNESS Ms. Oro is a 76-year-old white female with a history of GERD, esophageal stenosis, hyperlipidemia, who presents with a several hour history of vertigo. The patient states she awoke this morning. She felt sleepy but still was able to carry on her normal daily activities. However, she was driving and when she was driving she turned to look over her left shoulder and then developed increased neck pain and then saw flashes of light. She states she then stopped the car; however, she still felt the sensation that she was still moving. When she tried to walk she felt unsteady. She started to use the cane that she had used previously with her left knee fracture due to the unsteadiness and then she came to the emergency department for further evaluation. She denies any previous episodes of dizziness. She states that she does have nausea and vomiting with her dizziness. Denies any headache, no blurry vision, no chest pain or shortness of breath. She denies any recent illness though states about a month ago she had a stomach illness that resolved. PAST MEDICAL HISTORY Significant for: 1. Left knee surgery. 2. Gastroesophageal reflux disease. 3. Esophageal stenosis where she has had esophageal dilation. 4. She has hyperlipidemia. 5. She has a history of compression fractures. ALLERGIES None. MEDICATIONS 1. Tylenol Arthritis as needed. 2. Protonix 40 mg p.o. daily. SOCIAL HISTORY No tobacco, alcohol or drug use. FAMILY HISTORY Significant for both her brothers who had strokes. REVIEW OF SYSTEMS CONSTITUTION: No fever, chills. Nausea and vomiting as described above. Unit #: [id number] #: [id number] Patient: WELKE,ELVIN HEENT: No blurry vision, no hearing difficulties, dysphagia, rhinorrhea. PULMONARY: No dyspnea, hemoptysis or cough. CARDIOVASCULAR: No chest pain or palpitations. GI: As described in the past medical history. : No dysuria or hematuria. MUSCULOSKELETAL: She normally ambulates without the need for a cane or walker. She had only been using the cane today. She had used it in the past when she had her left knee fracture. ENDOCRINE: No known history of diabetes, thyroid or adrenal abnormalities. HEMATOLOGIC: No previous bleeding or bruising abnormalities. NEUROLOGICAL: No previous history of vertigo, no history of stroke or seizure. PHYSICAL EXAMINATION VITAL SIGNS: Her temp is 97.9, pulse is 76, respiratory rate 24, blood pressure is 150/92. She is 96% on room air. GENERAL APPEARANCE: She is a 76-year-old white female who is awake, alert, in no acute distress. HEENT: Normocephalic, atraumatic. Extraocular movements are intact. Pupils equal, round, reactive to light and accommodation. Nose and throat within normal limits. NECK: Supple. No JVD, bruits or cervical lymphadenopathy. CHEST: Clear to auscultation bilaterally. No wheezes, rhonchi or crackles. CARDIOVASCULAR: S1 and S2 normal. She has a regular rate and rhythm. ABDOMEN: Soft, nontender, nondistended. Positive bowel sounds. EXTREMITIES: No cyanosis, clubbing or edema. MUSCULOSKELETAL: She moves all four extremities without difficulty. NEUROLOGIC: She does have horizontal nystagmus. Otherwise, her sensorimotor are intact. She is oriented x3. SKIN: No visible rashes or lesions. DIAGNOSTIC STUDIES LABORATORY: Her laboratory work included a sodium 137, potassium 3.5, chloride 107, bicarb 25, BUN and creatinine 9 and 0.6 with a glucose of 95. Calcium is 8.7, magnesium 2.2, total protein 6.9, albumin 4.1, total bili 0.6, AST is 18, ALT is 10, alkaline phos. is 78, lipase was 25. PT/INR was 11.0 and 1.0 with a PTT of 27.6. White count was 5.6, H and H 14.3 and 42.7 with a platelet count of 234. Negative differential. Her urinalysis overall was negative. CARDIOVASCULAR: EKG showed a normal sinus rhythm. No ST-T wave changes. Heart rate was in the 70s. IMAGING: She had a head CT that was negative. Chest x-ray was negative. IMPRESSION Ms. Oro is a 76-year-old white female with esophageal stenosis, gastroesophageal reflux disease, who presents with vertigo. PLAN 1. Vertigo: I suspect the patient has benign positional vertigo. However, will need to rule out a cerebellar cerebrovascular accident, especially given her family history of stroke. Will check an MRI and Unit #: [id number] #: [id number] Patient: ELVIN ORO an MRA. Will start an aspirin. Will have physical therapy and occupational therapy see her. Will monitor her for now and we will have control her symptoms and start her on Meclizine. 2. Gastroesophageal reflux disease with history of esophageal stenosis: Will continue her PPI. 3. Hyperlipidemia: Will check her lipid profile. 4. Code status: She is a Full Code. 5. Disposition: We will observe her for now. Likely, if her workup is negative, she can be discharged home tomorrow. Dictated by Jessica Guerra/christin TD: 01/15/2017 06:57 JOB #: [id number] HISTORY AND PHYSICAL Page 1 of 1 X Yolanda Hankins HISTORY AND PHYSICAL
--- NOTE | ~2017-01-14 | CT71 ---
[facility] A Service of [facility] RADIOLOGY TEXT RESULTS PATIENT: ELVIN ORO LOCATION: C3A 341-01 : 40 UNIT #: [id number] AGE: [address]: Romeila Hernandez MD SEX: F ORDER DR: [id number] [facility] [address] [facility]. [place], [place] [address] [id number] E MR#: [id number] Acc #: [id number] NAME: ELVIN ORO : 1940 SEX: F STUDY DATE/TIME: 01/14/2017 17:00 UNIT: [facility] ROOM: STUDY DESCRIPTION: CT Head Wo Contrast Attending Physician: Esperanza Alfred M.D. Ordering Physician: Esperanza Alfred M.D. Primary Care Physician: Soco Barker M.D. MEDICAL IMAGING REPORT This report is preliminary unless electronic signature is present EXAM Head CT without contrast. HISTORY Weakness, dizziness and ataxia, onset today. TECHNIQUE Axial images were obtained without contrast. This CT exam was performed with one or more of the following radiation dose reduction techniques: automatic exposure control, adjustment of mA and/or kV according to patient size, and iterative reconstruction. FINDINGS Generalized atrophy is seen to a mild degree. There is no evidence of mass lesion, hemorrhage or edema. No midline shift is noted. Extraaxial structures are unremarkable. IMPRESSION Mild atrophy. Otherwise negative. No significant change from the head CT of 10/26/2016. Dictated by... John Mccormick M.D. THIS IS AN ELECTRONICALLY VERIFIED REPORT John Mccormick M.D. at 01/15/2017 3:45 PM ROBINF/harshal TD: 01/14/2017 19:46 JOB #: [id number] MEDICAL IMAGING REPORT [facility] A Service of [facility] RADIOLOGY TEXT RESULTS PATIENT: ELVIN ORO LOCATION: C3A 341-01 : 40 UNIT #: [id number] AGE: [address]: Romelia Hernandez MD SEX: F ORDER DR: Page 1 of 1 COPY
--- NOTE | ~2017-01-14 | MR134 ---
[facility] A Service of [facility] RADIOLOGY TEXT RESULTS PATIENT: ELVIN ORO LOCATION: [facility] 341- : 40 UNIT #: [id number] AGE: [address]: Romelia Hernandez MD SEX: F ORDER DR: [id number] [facility] [address] [place], [place] [address] [id number] I MR#: [id number] Acc #: [id number] NAME: ELVIN ORO : 1940 SEX: F STUDY DATE/TIME: 01/14/2017 20:36 [facility] STUDY DESCRIPTION: MR MRA Neck Wo Contrast Attending Physician: Yolanda Hankins M.D. Ordering Physician: Yolanda Hankins M.D. Primary Care Physician: Soco Barker M.D. MRI CENTER REPORT This report is preliminary unless electronic signature is present. EXAM MR angiogram of the neck without contrast, dated 01/14/2017. COMPARISON MRI bran and MRA head dated 01/14/2017. HISTORY Vertigo, nausea and seeing flash lights since 11:30 a.m. today. FINDINGS Source and 3D reconstruction MIP images of the neck arteries were obtained without contrast as per the protocol. 2D and 3D [id number] images were obtained followed by reformats. 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 Bilateral common carotid arteries, internal and external carotid arteries do not demonstrate any significant stenosis, aneurysm or AVM. Left vertebral artery is dominant. Bilateral vertebral arteries are grossly unremarkable. IMPRESSION 1. No hemodynamically flow-limiting significant stenosis and bilateral internal carotid artery bulbs per NASCET criteria. Dictated by... Osiel Goins M.D. THIS IS AN ELECTRONICALLY VERIFIED REPORT Osiel Goins M.D. at 01/15/2017 2:26 PM [facility] A Service of [facility] RADIOLOGY TEXT RESULTS PATIENT: ELVIN ORO LOCATION: [facility] 341-01 : 40 UNIT #: [id number] AGE: [address]: Romelia Hernandez MD SEX: F ORDER DR: DANYELLE/harshal TD: 01/14/2017 23:53 JOB #: [id number] MRI CENTER REPORT Page 1 of 1 COPY
--- NOTE | ~2017-01-14 | DS ---
Unit #: [id number] #: [id number] Patient: ELVIN ORO [id number] [address] [place], [place] [address] [id number] I MR#: [id number] NAME: ELVIN ORO ROOM: 341 Age: 76 Sex: F Admission Date: 01/14/2017 : 1940 Discharge Date: 01/15/2017 Attending Physician: Romelia Hernandez M.D. Primary Care Physician: Soco Barker M.D. DISCHARGE SUMMARY PRINCIPAL DIAGNOSES 1. Left-sided benign paroxysmal positional vertigo. 2. Hyperlipidemia. 3. Gastroesophageal reflux disease with recent history of esophageal stenosis, status post dilatation. APPLICATOR SPRAYER None. PROCEDURES 1. Chest x-ray on January 14, 2017, which was negative. 2. CT of the head without contrast on January 14, 2017 with mild atrophy. No other acute findings. 3. MRA of head and neck on January 14, 2017 with no flow-limiting stenosis in the bilateral internal carotid artery bulbs. There is mild atherosclerotic irregularities without severe stenosis in the [place]. No evidence of aneurysm. 4. MRI of the brain without contrast on January 14, 2017, with no acute stroke. Mild septal deviation to the left noted. Mild bilateral ethmoid and right sphenoid sinus mucosal thickening noted. CLINICAL HISTORY AND HOSPITAL COURSE Ms. Oro is a very nice 76-year-old female, who presents to the emergency department with acute onset of dizziness after turning to the left. Please refer to H and P for further details. Patient's CT scan of the head and lab work in the emergency department was unremarkable. She was placed in observation to rule out stroke. Patient underwent MRA of head and neck and MRI of the brain; all of which were normal. She was placed on empiric meclizine due to clinical findings most consistent with BPPV. Today she is feeling a little bit sleepy from meclizine but her dizziness is much improved. She did undergo a modified Amarilis-Hallpike today in the hospital and states her dizziness is a bit better afterwards. We are going to plan for outpatient vestibular therapy and I think she can safely be discharged home. I will note given the concerns about possible stroke, she underwent a fasting lipid panel and her LDL was significantly elevated at 176. Patient states her blood work was just checked recently by Dr. Barker and it was normal. She would like to discuss these findings with Dr. Barker at her next followup appointment rather than initiating medications. DISCHARGE CONDITION Stable. Unit #: [id number] #: [id number] Patient: ELVIN ORO DISCHARGE STATUS Discharge to home. DISCHARGE MEDICATIONS 1. Tylenol 500 mg p.o. q.6 hours p.r.n. for pain. 2. Meclizine 25 mg p.o. t.i.d. p.r.n. for dizziness #15 given. 3. Protonix 40 mg daily. DISCHARGE INSTRUCTIONS 1. The patient was instructed to follow a heart healthy diet. 2. She can increase her activity as tolerated. 3. She should not drive while taking meclizine. FOLLOWUP Outpatient vestibular therapy will be arranged prior to patient's discharge today. She is to follow up with Dr. Barker in two weeks and can re-evaluate initiation of statin therapy at that time. Dictated by... Romelia Hernandez M.D. CECILIA/henrry TD: 01/16/2017 11:07 JOB #: [id number] DISCHARGE SUMMARY Page 1 of 1 X Romelia Hernandez MD X DISCHARGE SUMMARY
--- NOTE | ~2017-01-14 | EKG ---
PATIENT: ELVIN ORO UNIT #: [id number] Ventricular Rate: 76 BPM Atrial Rate: 76 BPM P-R Interval: 144 ms QRS Duration: 90 ms Q-T Interval: 396 ms QTC Calculation(Bezet): 445 ms P Wilcox: 39 degrees Calculated R Wilcox: -56 degrees Calculated T Wilcox: 43 degrees Diagnosis Line: Normal sinus rhythm Diagnosis Line: Left anterior fascicular block Diagnosis Line: Moderate voltage criteria for LVH, may be normal Diagnosis Line: variant Diagnosis Line: Abnormal ECG Diagnosis Line: No previous ECGs available Diagnosis Line: Confirmed by CE QUAN MD ([id number]) on 01/15/2017 Diagnosis Line: 8:23:39 PM INTERPRETING MD: AVELINA KUNZ
--- NOTE | ~2017-01-14 | MR18 ---
[facility] A Service of [facility] RADIOLOGY TEXT RESULTS PATIENT: ELVIN ORO LOCATION: [facility] 341- : 40 UNIT #: [id number] AGE: [address]: Romelia Hernandez MD SEX: F ORDER DR: [id number] [facility] [address] [facility] [place], [place] [address] [id number] I MR#: [id number] Acc #: [id number] NAME: ELVIN ORO : 1940 SEX: F STUDY DATE/TIME: 01/14/2017 20:36 UNIT: [address] ROOM: [facility] STUDY DESCRIPTION: MR Brain Wo Contrast Attending Physician: Yolanda Hankins M.D. Ordering Physician: Yolanda aHnkins M.D. Primary Care Physician: Soco Barker M.D. MRI CENTER REPORT This report is preliminary unless electronic signature is present. EXAM MRI of the brain without contrast, 01/14/2017 COMPARISON MRA head and neck dated 01/14/2017 HISTORY Vertigo, nausea, seeing flashing lights since 11:30 a.m. today. FINDINGS Multisequence multiplanar imaging of the brain was obtained without contrast. No acute stroke, space occupying intracranial mass, mass effect, midline shift or hydrocephalus. Vascular flow voids of the major cerebral arteries and dural venous sinuses are not occluded in these thicker slices. Thick slices through the sella with the pituitary gland, pineal region and upper cervical spine are grossly unremarkable. Nasal septal deviation to the left. Minimal bilateral ethmoid and right sphenoid sinus mucosal thickening. IMPRESSION 1. No demonstrable acute stroke or other acute intracranial abnormality. Dictated by... Osiel Goins M.D. THIS IS AN ELECTRONICALLY VERIFIED REPORT Osiel Goins M.D. at 01/15/2017 2:27 PM CPR/ljd [facility] A Service of [facility] RADIOLOGY TEXT RESULTS PATIENT: ELVIN ORO LOCATION: [facility] PC 341-01 : 40 UNIT #: [id number] AGE: [address]: Romelia Hernandez MD SEX: F ORDER DR: TD: 01/15/2017 00:16 JOB #: [id number] MRI CENTER REPORT Page 1 of 1 COPY
--- NOTE | ~2017-01-14 | CR72 ---
[facility] A Service of [facility] RADIOLOGY TEXT RESULTS PATIENT: ELVIN ORO LOCATION: [facility] 341-01 : 40 UNIT #: [id number] AGE: [address]: Romelia Hernandez MD SEX: F ORDER DR: [id number] [facility] [address] [facility] [address] [facility] [place], [place] [address] [id number] E MR#: [id number] Acc #: [id number] NAME: ELVIN ORO : 1940 SEX: F STUDY DATE/TIME: 01/14/2017 16:31 UNIT: [facility] ROOM: STUDY DESCRIPTION: CR Chest Single View Portable Attending Physician: Esperanza Alfred M.D. Ordering Physician: Esperanza Alfred M.D. Primary Care Physician: Soco Barker M.D. MEDICAL IMAGING REPORT This report is preliminary unless electronic signature is present EXAM Portable chest INDICATIONS Shortness of breath with activity since today. COMPARISON STUDIES Comparison with 10/26/2016 FINDINGS There is minimal linear scarring or atelectasis within the left base. No definite acute infiltrate. Heart size stable. IMPRESSION No active disease. Dictated by... Heri Jackson M.D. THIS IS AN ELECTRONICALLY VERIFIED REPORT Heri Jackson M.D. at 01/15/2017 7:24 PM Iglesia TD: 01/14/2017 18:28 JOB #: [id number] MEDICAL IMAGING REPORT Page 1 of 1 COPY
--- NOTE | ~2017-01-14 | MR122 ---
[facility] A Service of [facility] RADIOLOGY TEXT RESULTS PATIENT: ELVIN ORO LOCATION: [facility] 341- : 40 UNIT #: [id number] AGE: [address]: Romelia Hernandez MD SEX: F ORDER DR: [id number] [facility] [address] [facility] [place], [place] [address] [id number] I MR#: [id number] Acc #: [id number] NAME: ELVIN ORO : 1940 SEX: F STUDY DATE/TIME: 01/14/2017 20:36 UNIT: A PCU ROOM: [facility] STUDY DESCRIPTION: MR MRA Head Wo Contrast Attending Physician: Yolanda Hankins M.D. Ordering Physician: Yolanda Hankins M.D. Primary Care Physician: Soco Barker M.D. MRI CENTER REPORT This report is preliminary unless electronic signature is present. EXAM MR angiogram of the head without contrast, 01/14/2017 COMPARISON MRI brain without contrast 01/14/2017, MRA neck without contrast dated 01/14/2017. HISTORY Vertigo, nausea and seeing flashing lights since 11:30 a.m. today. FINDINGS Source and 3-D reconstruction MIP images of the [place] was obtained without contrast. Bilateral intracranial internal carotid arteries do not demonstrate any significant stenosis. A-1 segment of the left XAVIER is slightly smaller when compared to the right. It is probably slightly hypoplastic. bilateral middle cerebral arteries demonstrate slight decreased flow in the posterior hemispheric branches (series 101, image 12), asymmetrical when compared to the right. Nonspecific. It could be related to mild atherosclerotic disease in this region. It is not clearly demonstrated in the source images. There is probably a tiny ACOM. Left PCOM is seen but a well defined right PCOM is not. The right vertebral artery slightly decreases in caliber close to the vertebrobasilar junction. It has a smooth caliber and it is probably a congenital appearance given the lack of any irregular plaques along the surface. Mild stenosis cannot be excluded. Basilar artery, bilateral posterior cerebral arteries and visualized bilateral superior cerebellar arteries are probably unremarkable. There is decreased flow noted in bilateral P-4 segments, particularly on the left. It could be due to artifact or mild atherosclerotic disease. No aneurysm or AVM. IMPRESSION 1. Mild atherosclerotic irregularities are probably present without any STS. [facility] A Service of [facility] RADIOLOGY TEXT RESULTS PATIENT: ELVIN ORO LOCATION: [facility] 341-01 : 40 UNIT #: [id number] AGE: [address]: Romelia Hernandez MD SEX: F ORDER DR: severe stenosis in the [place]. 2. No aneurysm. Dictated by... Osiel Goins M.D. THIS IS AN ELECTRONICALLY VERIFIED REPORT Osiel Goins M.D. at 01/15/2017 2:26 PM CPR/terry TD: 01/15/2017 00:01 JOB #: [id number] MRI CENTER REPORT Page 1 of 1 COPY
[~2017-01-14 15:00] MED LIST changes: -MOTION RELIEF25 MG PO
[2017-01-14 16:39] LABS: BASOPHIL% 0.7 % (0-2.5); EOSINOPHIL% 0.7 % (0.0-7.0); HEMATOCRIT 42.7 % (35.0-45.0); HEMOGLOBIN 14.3 gm/dL (12.0-16.0); LYMPHOCYTE# 0.9 X10e3 (1.0-3.5); LYMPHOCYTE% 16.9 % (17.0-45.0); MEAN CELL VOLUME 97.3 FL (83-96); MEAN CORPUSCULAR HEMOGLOBIN 32.5 PG (28-34); MEAN CORPUSCULAR HGB CONC 33.4 g/dL (30-36); MEAN PLATELET VOLUME 7.2 FL (6.5-11.5); MONOCYTE# 0.5 X10e3 (0-1.0); MONOCYTE% 9.6 % (3.0-12.0); NEUTROPHIL% 72.1 % (40-75); PLATELET COUNT 234 X10e3 (140-420); RED BLOOD COUNT 4.39 X10e (3.90-5.30); RED CELL DISTRIBUTION WIDTH 14.1 % (11.0-15.5); WHITE BLOOD COUNT 5.6 X10e3 (4.0-10.5)
[2017-01-14 16:43] LABS: DIFF IND NO
[2017-01-14 16:51] LABS: PARTIAL THROMBOPLASTIN TIME 27.6 SECONDS (23.5-31.3)
[2017-01-14 16:59] LABS: ALBUMIN SERUM 4.1 g/dL (3.5-5.0); BILIRUBIN, DIRECT 0.1 mg/dL (0.0-0.2); BILIRUBIN,INDIRECT 0.5 mg/dL (0.0-0.9); BILIRUBIN,TOTAL 0.6 mg/dL (0.2-2.0); CALCIUM SERUM 8.7 mg/dL (8.4-10.2); CREATININE SERUM 0.6 mg/dL (0.6-1.4); GLOM FILT RATE Estimated 88.5 mL/min (>60); MAGNESIUM 2.2 mg/dL (1.6-3.0); POTASSIUM 3.5 mmol/L (3.5-5.1); PROTEIN TOTAL SERUM 6.9 g/dL (6.0-8.3)
[2017-01-14 17:22] LABS: URINE SOURCE CLEAN CATCH
[2017-01-14 17:34] LABS: URINE APPEARANCE CLEAR; URINE BILIRUBIN NEG (NEG); URINE BLOOD NEG (NEG); URINE COLOR YELLOW; URINE GLUCOSE NEG (NEG); URINE KETONE NEG (NEG); URINE LEUKOCYTE ESTERASE NEG (NEG); URINE NITRATE NEG (NEG); URINE PH 7.5 (5-8); URINE PROTEIN NEG (NEG); URINE SPECIFIC GRAVITY 1.005 (1.003-1.035); URINE UROBILINOGEN 0.2 MG/DL (NEG)
[2017-01-14 17:39] LABS: CULTURE INDICATED? NO
[2017-01-14 17:48] LABS: POC - CKMB <1.0 ng/mL (0.0-7.9); POC - TROPONIN <0.05 ng/mL (<=0.05)
[2017-01-14 17:58] LABS: POC - CKMB <1.0 ng/mL (0.0-7.9); POC - TROPONIN <0.05 ng/mL (<=0.05)
[2017-01-14] MEDS ORDERED: PROTONIX PO (19:16)
[2017-01-15 06:47] LABS: CHOLESTEROL 253 mg/dL (0-200); HDL CHOLESTEROL 45 mg/dL (35-95); LDL CHOLESTEROL 176 mg/dL (-130); LDL/HDL RATIO 4 RATIO (0-4); TRIGLYCERIDES 159 mg/dL (10-160)
[2017-01-15] MEDS ORDERED: MOTION RELIEF25 MG PO (15:02)
== END 2017-01-15 17:11 | disposition home or self-care (01) ==
LOC: CED 15:00 → CEDOF 19:26 → CED 19:56 → C3A PCU 21:40 → CEDOF 21:40 → C3A PCU 21:40
PROVIDERS: Internal Medicine; Student in an Organized Health Care Education/Training Program
DX: H81.12 Benign paroxysmal vertigo, left ear (principal); E78.5 Hyperlipidemia, unspecified; K21.9 Gastro-esophageal reflux disease without esophagitis; G31.89 Other specified degenerative diseases of nervous system; J34.2 Deviated nasal septum; J34.89 Other specified disorders of nose and nasal sinuses; I67.2 Cerebral atherosclerosis; Z79.899 Other long term (current) drug therapy; Z82.3 Family history of stroke; Z98.890 Other specified postprocedural states
CPT/HCPCS: 36415; 70450; 70544; 70547; 70551; 71010; 80048; 80061; 80076; 81003; 82553; 82947; 83690; 83735; 83880; 84484; 85025; 85610; 85730; 93005; 96361; 96372; 96374; 97112; 97162; 97167; 97535; 99285; G0378; G8978-GP; G8979-GP; G8980-GP; G8987-GO; G8988-GO; G8989-GO; J1650; J2405